=== PATIENT | male | born 1945 | race Caucasian/White ===

== ENCOUNTER → 2018-08-12 | Outpatient (CLI) | payer MEDICARE ==
[2018-08-12 20:47] LABS: African American GFR (CKD) 98.5 (60.0-200.0); Albumin 4.5 g/dL (3.80-4.90); Albumin/Globulin Ratio 1.45 (1.60-3.17); Anion Gap 13.6 mmol/L (4.00-12.00); BUN/Creat Ratio 14.44 Ratio (12.00-20.00); Calcium 9.6 mg/dL (8.7-10.3); Carbon Dioxide 23.4 mmol/L (21.6-31.8); Globulin 3.1 g/dL (1.6-3.3); Potassium 4.1 mmol/L (3.5-5.5); Total Bilirubin 0.6 mg/dL (0.3-1.2); Total Protein 7.6 g/dL (6.2-8.2)
== END | disposition home or self-care (01) ==
LOC: LABWHC1 12:57
PROVIDERS: ATTEND Internal Medicine Interventional Cardiology
DX: I49.9 Cardiac arrhythmia, unspecified (principal)
CPT/HCPCS: 36415; 80053; 83735; 84443

== ENCOUNTER 2019-11-11 16:14 | Observation (INO) | payer MEDICARE ==
[2019-11-11 16:55] LABS: Basophils # (A) 0.1 k/uL (0-0.2); Basophils % (A) 1 %; Eosinophils # (A) 0.2 k/uL (0-0.7); Eosinophils % (A) 2 %; HCT 38.4 % (39.0-53.0); HGB 12.9 gm/dL (13.0-17.5); Lymphocytes # (A) 1.5 k/uL (1.0-4.8); Lymphocytes % (A) 16 %; MCH 31.2 pg (25.0-35.0); MCHC 33.5 g/dL (31.0-37.0); MCV 92.9 fL (80.0-100.0); Monocytes # (A) 0.7 k/uL (0-1.0); Monocytes % (A) 7 %; Neutrophils # (A) 7.1 k/uL (1.3-7.7); Neutrophils % (A) 73 %; Platelet Count 277 k/uL (150-450); RBC 4.14 m/uL (4.30-5.90); RDW 12.1 % (11.5-15.5); WBC 9.7 k/uL (3.8-10.6)
[2019-11-11 17:07] LABS: ALT 16 U/L (4-49); AST 34 U/L (17-59); African American GFR (CKD) >90 (>60 ml/min/1.73 sqM); Albumin 3.9 g/dL (3.5-5.0); Alkaline Phosphatase 94 U/L (38-126); Anion Gap 4 mmol/L; Blood Urea Nitrogen 20 mg/dL (9-20); Calcium 9.2 mg/dL (8.4-10.2); Carbon Dioxide 27 mmol/L (22-30); Chloride 107 mmol/L (98-107); Creatine Kinase 147 U/L (55-170); Glucose 95 mg/dL (74-99); INR 1.1 (<1.2); Non-African American GFR(CKD) 88 (>60 ml/min/1.73 sqM); Partial Thromboplastin Time 24.3 sec (22.0-30.0); Potassium 4.2 mmol/L (3.5-5.1); Prothrombin Time 10.9 sec (9.0-12.0); Sodium 138 mmol/L (137-145); Total Bilirubin 1.2 mg/dL (0.2-1.3); Total Protein 7.1 g/dL (6.3-8.2)
[2019-11-11 17:47] LABS: Appearance,Urine Clear (Clear); Bilirubin,Urine Negative (Negative); Blood,Urine Negative (Negative); Color,Urine Yellow; Glucose,Urine (UA) Negative (Negative); Ketones,Urine 1+ (Negative); Leukocyte Esterase,Urine Negative (Negative); Nitrite,Urine Negative (Negative); PH, Urine 7.5 (5.0-8.0); Protein,Urine Trace (Negative); Specific Gravity,Urine 1.024 (1.001-1.035)
--- NOTE | 2019-11-11 17:57 | ED ---
Altered Mental Status HPI - General Chief Complaint: Altered Mental Status Stated Complaint: Altered Mental Time Seen by Provider: 11/11/19 16:20 Source: EMS Mode of arrival: EMS Limitations: altered mental status - History of Present Illness Initial Comments: Patient is a 74-year-old male with past history of Parkinson's who presents emergency room with reported weakness and altered mental status. The is at bedside and helps provide history. She states that on the the patient was started on Risperdal by his psychiatrist Dr. Saleem. states that this medication was post to help him with his balance and Parkinson's symptoms. She states that ever since he started medication he has been more aggressive. He has been refusing to take his medications over the past several weeks. He also hasn't been eating. reports increased weakness. He used to walk with a walker however this has become very difficult for him. He has sustained 3 falls in the past 2 weeks. The first fall he fell backwards and hit his head. Yesterday the patient fell and EMS had to come to the house to assist with the left. They deny any fevers or chills. No nausea or vomiting. Patient denies any chest or abdominal pain. Does report feeling confused at times. Patient has chronic lower extremity weakness. states this is not any worse than normal. No rashes. No chest pain or shortness of breath. Remainder of the HPI is limited because the patient's mentation - Related Data Home Medications Medication Instructions Recorded Confirmed Carbidopa-Levodopa 25-100 mg 1 tab PO QID 11/11/19 11/11/19 [Sinemet 25-100 mg] Hydrochlorothiazide 12.5 mg PO DAILY 11/11/19 11/11/19 [hydroCHLOROthiazide] Ibuprofen [Motrin Ib] 400 - 600 mg PO Q6H PRN 11/11/19 11/11/19 QUEtiapine [SEROquel] 25 mg PO HS 11/11/19 11/11/19 Tamsulosin [Flomax] 0.8 mg PO HS 11/11/19 11/11/19 diazePAM [Valium] 5 - 10 mg PO ONCE PRN 11/11/19 11/11/19 Allergies Allergy/AdvReac Type Severity Reaction Status Date / Time Penicillins Allergy Unknown Verified 11/11/19 19:36 Childhood Review of Systems ROS Statement: Those systems with pertinent positive or pertinent negative responses have been documented in the HPI. ROS Other: All systems not noted in ROS Statement are negative. Past Medical History Past Medical History: Unable to Obtain History of Any Multi-Drug Resistant Organisms: None Reported Past Surgical History: Unable to Obtain Past Psychological History: No Psychological Hx Reported Smoking Status: Never smoker Past Alcohol Use History: Daily Past Drug Use History: None Reported General Exam Limitations: altered mental status General appearance: alert, in no apparent distress Head exam: Present: atraumatic Neck exam: Present: normal inspection. Absent: tenderness, meningismus, lymphadenopathy Respiratory exam: Present: normal lung sounds bilaterally. Absent: respiratory distress, wheezes, rales, rhonchi, stridor Cardiovascular Exam: Present: regular rate, normal rhythm, normal heart sounds. Absent: systolic murmur, diastolic murmur, rubs, gallop, clicks GI/Abdominal exam: Present: soft, normal bowel sounds. Absent: distended, tenderness, guarding, rebound, rigid Extremities exam: Present: pedal edema, other (resting tremor, ridigity) Neurological exam: Present: alert Psychiatric exam: Present: flat affect Skin exam: Present: warm, dry, intact, normal color. Absent: rash Course Vital Signs 11/11/19 11/11/19 16:17 18:57 Temperature 99.8 F H Pulse Rate 71 89 Respiratory 16 18 Rate Blood Pressure 156/84 134/80 O2 Sat by Pulse 98 99 Oximetry Medical Decision Making - Medical Decision Making Upon arrival the patient is placed into room 24. A thorough history and physical exam was performed. Because the patient's fall with blunt head trauma I did recommend a CT of the patient's brain. Laboratory studies were conducted. Laboratory studies are within normal range. Urinalysis is negative. CT of the patient's head and cervical spine demonstrates age-related atrophy with no acute intracranial process. Chest x-ray demonstrates no acute cardio pulmonary process. I discussed results with the patient and his . The patient has had a decreased appetite, refusing to take his medications of multiple falls I am concerned for the patient's safety. I will hold his Risperdal. I did recommend hospital admission for which the patient did agree to. I discussed case with Dr. Jiménez who agreed to admit the patient. Patient's remained in stable condition and was admitted to the floor - Lab Data Result diagrams: 11/12/19 05:40 11/12/19 05:40 Lab Results 11/11/19 11/11/19 11/11/19 Range/Units 16:45 16:45 16:45 WBC 9.7 (3.8-10.6) k/uL RBC 4.14 L (4.30-5.90) m/uL Hgb 12.9 L (13.0-17.5) gm/dL Hct 38.4 L (39.0-53.0) % MCV 92.9 (80.0-100.0) fL MCH 31.2 (25.0-35.0) pg MCHC 33.5 (31.0-37.0) g/dL RDW 12.1 (11.5-15.5) % Plt Count 277 (150-450) k/uL Neutrophils % 73 % Lymphocytes % 16 % Monocytes % 7 % Eosinophils % 2 % Basophils % 1 % Neutrophils # 7.1 (1.3-7.7) k/uL Lymphocytes # 1.5 (1.0-4.8) k/uL Monocytes # 0.7 (0-1.0) k/uL Eosinophils # 0.2 (0-0.7) k/uL Basophils # 0.1 (0-0.2) k/uL PT 10.9 (9.0-12.0) sec INR 1.1 (<1.2) APTT 24.3 (22.0-30.0) sec Sodium (137-145) mmol/L Potassium (3.5-5.1) mmol/L Chloride (98-107) mmol/L Carbon Dioxide (22-30) mmol/L Anion Gap mmol/L BUN (9-20) mg/dL Creatinine (0.66-1.25) mg/dL Est GFR (CKD-EPI)AfAm (>60 ml/min/1.73 sqM) Est GFR (CKD-EPI)NonAf (>60 ml/min/1.73 sqM) Glucose (74-99) mg/dL Calcium (8.4-10.2) mg/dL Total Bilirubin (0.2-1.3) mg/dL AST (17-59) U/L ALT (4-49) U/L Alkaline Phosphatase (38-126) U/L Creatine Kinase (55-170) U/L Troponin I (0.000-0.034) ng/mL Total Protein (6.3-8.2) g/dL Albumin (3.5-5.0) g/dL Urine Color Yellow Urine Appearance Clear (Clear) Urine pH 7.5 (5.0-8.0) Ur Specific [place] 1.024 (1.001-1.035) Urine Protein Trace H (Negative) Urine Glucose (UA) Negative (Negative) Urine Ketones 1+ H (Negative) Urine Blood Negative (Negative) Urine Nitrite Negative (Negative) Urine Bilirubin Negative (Negative) Urine Urobilinogen 6.0 (<2.0) mg/dL Ur Leukocyte Esterase Negative (Negative) 11/11/19 11/11/19 Range/Units 16:45 16:45 WBC (3.8-10.6) k/uL RBC (4.30-5.90) m/uL Hgb (13.0-17.5) gm/dL Hct (39.0-53.0) % MCV (80.0-100.0) fL MCH (25.0-35.0) pg MCHC (31.0-37.0) g/dL RDW (11.5-15.5) % Plt Count (150-450) k/uL Neutrophils % % Lymphocytes % % Monocytes % % Eosinophils % % Basophils % % Neutrophils # (1.3-7.7) k/uL Lymphocytes # (1.0-4.8) k/uL Monocytes # (0-1.0) k/uL Eosinophils # (0-0.7) k/uL Basophils # (0-0.2) k/uL PT (9.0-12.0) sec INR (<1.2) APTT (22.0-30.0) sec Sodium 138 (137-145) mmol/L Potassium 4.2 (3.5-5.1) mmol/L Chloride 107 (98-107) mmol/L Carbon Dioxide 27 (22-30) mmol/L Anion Gap 4 mmol/L BUN 20 (9-20) mg/dL Creatinine 0.81 (0.66-1.25) mg/dL Est GFR (CKD-EPI)AfAm >90 (>60 ml/min/1.73 sqM) Est GFR (CKD-EPI)NonAf 88 (>60 ml/min/1.73 sqM) Glucose 95 (74-99) mg/dL Calcium 9.2 (8.4-10.2) mg/dL Total Bilirubin 1.2 (0.2-1.3) mg/dL AST 34 (17-59) U/L ALT 16 (4-49) U/L Alkaline Phosphatase 94 (38-126) U/L Creatine Kinase 147 (55-170) U/L Troponin I 0.012 (0.000-0.034) ng/mL Total Protein 7.1 (6.3-8.2) g/dL Albumin 3.9 (3.5-5.0) g/dL Urine Color Urine Appearance (Clear) Urine pH (5.0-8.0) Ur Specific [place] (1.001-1.035) Urine Protein (Negative) Urine Glucose (UA) (Negative) Urine Ketones (Negative) Urine Blood (Negative) Urine Nitrite (Negative) Urine Bilirubin (Negative) Urine Urobilinogen (<2.0) mg/dL Ur Leukocyte Esterase (Negative) - EKG Data EKG Comments: EKG demonstrates a normal sinus rhythm with a ventricular rate of 68. DC interval and 26. QRS 106. QTC of 433. Significant baseline artifact. No acute ST segment elevations or depressions Disposition Clinical Impression: Acute encephalopathy, Fall, Medication adverse effect, Parkinson disease Disposition: ADMITTED IP TO THIS HOSP Condition: Stable Is patient prescribed a controlled substance at d/c from ED?: No Decision to Admit Reason: Admit from EC Decision Date: 11/11/19 Decision Time: 18:41
--- NOTE | 2019-11-11 18:07 | CT ---
EXAMINATION TYPE: CT brain moustapha mendoza con DATE OF EXAM: 11/11/2019 COMPARISON: None HISTORY: Fall injury CT DLP: 1561.8 mGycm, Automated exposure control for dose reduction was used. CONTRAST: Patient injected with mL of . CT of the brain is performed utilizing 3 mm thick sections through the posterior fossa and 3 mm thick sections through the remaining calvarium. Study is performed within 24 hours of arrival to the hospital. No abnormal hyperdensity is present to suggest an acute intracranial hemorrhage. No mass lesion is evident. No acute infarcts are evident. There may be an old lacunar infarct or Virchow-Daryl space adjacent t o the left of the third ventricle. Ventricles and sulci are mildly prominent for the patient age. There is prominence of the extra-axia l space especially noted against the right frontal lobe. Paranasal sinuses and mastoid air cells within the [id number]-tatt are clear. IMPRESSIONS: 1. Age-related atrophy. 2. No acute intracranial process. CT cervical spine. COMPARISON: None CT of the cervical spine is performed in the axial plane at 2 mm thick sections. Reconstructed image s in the coronal, and sagittal plane are reviewed on the computer. No acute fractures are evident. Positioning on the lateral reconstructed images makes evaluation difficult. Disc heights are preserved. Vertebral body heights are preserved. No spinal canal stenosis is evident. No neural foraminal stenosis is evident. IMPRESSIONS: 1. No acute osseous abnormality. 2. Some limitation due to positioning on the lateral projection.
--- NOTE | 2019-11-11 18:19 | XR ---
EXAMINATION TYPE: XR chest 2V DATE OF EXAM: 11/11/2019 COMPARISON: None INDICATION: Cough, pain TECHNIQUE: Frontal and lateral views of the chest are obtained. FINDINGS: The heart size is normal. The pulmonary vasculature is normal. No suspicious focal infiltrates are evident. IMPRESSION: 1. No acute pulmonary process.
[2019-11-11] MEDS ORDERED: NALOXONE 0.4 MG/ML 1 ML VIAL IV PRN (18:41)
[2019-11-11] MEDS: SODIUM CHLORIDE 0.9% 1,000 ML IV SCH (18:55)
[2019-11-12] MEDS: QUEtiapine 25 MG TAB PO SCH ×2 (01:28→21:08)
[2019-11-12 06:27] LABS: Basophils % (A) 0 %; Eosinophils # (A) 0.2 k/uL (0-0.7); Eosinophils % (A) 2 %; HCT 37.2 % (39.0-53.0); Lymphocytes # (A) 1.7 k/uL (1.0-4.8); Lymphocytes % (A) 18 %; MCH 32.5 pg (25.0-35.0); MCV 92.9 fL (80.0-100.0); Mean Platelet Volume 6.4; Monocytes # (A) 0.5 k/uL (0-1.0); Monocytes % (A) 5 %; Neutrophils # (A) 6.7 k/uL (1.3-7.7); Neutrophils % (A) 72 %; Platelet Count 268 k/uL (150-450); RDW 12.4 % (11.5-15.5); WBC 9.3 k/uL (3.8-10.6)
[2019-11-12] MEDS: hydroCHLOROthiazide 12.5 MG CAP PO SCH (09:03)
[2019-11-12] MEDS: CARBIDOPA-LEVODOPA 25-100 MG 1 EACH TAB PO SCH ×4 (09:03→21:08)
[2019-11-12 09:05] LABS: Anion Gap 7.2 mmol/L (4.00-12.00); BUN/Creat Ratio 21.25 Ratio (12.00-20.00); Calcium 8.8 mg/dL (8.7-10.3); Carbon Dioxide 26.8 mmol/L (21.6-31.8)
[2019-11-12] MEDS: SODIUM CHLORIDE 0.9% 1,000 ML IV SCH ×2 (12:01→21:08)
--- NOTE | 2019-11-12 14:37 | P.CN ---
Psychiatric Consult - . Consult date: 11/12/19 Consult:: IDENTIFYING DATA: This patient is a 74-year-old male with a significant history of Parkinson's disease admitted to the hospital for altered mental status and weakness. HISTORY OF PRESENT ILLNESS: The patient presented to the hospital on 11/11/2019 with altered mental status accompanied by his . Most of the patient history was provided by the patient's at bedside with permission granted by the patient. She reports that the patient has had increasing confusion and worsening of Parkinson's symptoms over the past week. She states that he was recently seen by Dr. Saleem, the outpatient psychiatrist after his outpatient neurologist informed him that there was not much else he can do to manage his psychotic symptoms. Risperdal was added and the patient experienced worsening of his symptoms. Currently, the patient is not endorsing any significant symptoms of depression or anxiety at this time. At this time patient denies any suicidal or homicidal ideations, intent or plan. Patient denies any auditory, visual hallucinations and denies any paranoia or delusions. There is no reported history of substance use. He is to drink frequently but has decreased his use to one beer per day at most. PAST PSYCHIATRIC HISTORY: Patient has a a history of anxiety. 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 Patient denies any previous psychiatric hospitalizations. Patient has recently seen by Dr. Saleem. Patient denies any history of suicide attempts in the past. PAST MEDICAL HISTORY: Parkinson's disease. ALLERGIES: as per EMR. CHEMICAL DEPENDENCY HISTORY: as per HPI. FAMILY PSYCHIATRIC/SUBSTANCE USE HISTORY: denies SOCIAL HISTORY: Patient was born and raised in [place]. 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 As of education is graduating high school. MENTAL STATUS EXAM: General Appearance: Patient appears to be stated age is alert, pleasant, and cooperative. Patient appears to have fair hygiene and grooming wearing hospital gown with fair eye contact. Mask facies. Behavior: Patient is calmly lying in bed without any agitated behavior. Pill- rolling tremor noted. Bradykinetic movements. Speech: Patient's speech is minimal and nonspontaneous. Mood/Affect: Patient reports their mood is "doing okay", affect is flat Suicidality/Homicidality: Patient denies having any suicidal or homicidal ideation intent or plan. Perceptions: Patient denies any visual hallucinations and denies any auditory hallucinations Though content/process: There is no evidence of any delusional thought content and thought process is linear and goal-directed. Memory and concentration: Patient is alert and oriented to person and place but not to time. Judgment and insight: poor IMPRESSIONS: Parkinson's related psychosis. PLAN: -At this time patient DOES NOT meet criteria for inpatient psychiatric admission. -Delirium precautions recommended with patient including - avoiding use of narcotics and UROLOGIST MD sedatives, limit anticholinergic medications when possible, frequent re-orientation, minimize use of restraints, open window shades during the day and close them at night -Would recommend the following medication changes/additions: Continue Quetiapine 25 mg by mouth at bedtime for psychosis Recommend holding Risperdal as the dopamine montez would contribute to worsening parkinsonian symptoms. Discussed with patient and Klaus as an option that they may pursue in the outpatient setting to address parkinson's related psychosis as his medication targets serotonergic receptors and not dopamine. Currently not on our formulary. -Psychiatry will sign off at this point, please contact with any questions. 11/12/19 14:33
[2019-11-12 14:40] VITALS: BMI 32.5
--- NOTE | 2019-11-12 14:40 | P.CNNES ---
History of Present Illness Consult date: 11/12/19 Requesting physician: Nimisha Gomez Reason for Consult: Acute encephalopathy, history of Parkinson's History of Present Illness: Patient is a 74-year-old male, with history of Parkinson's disease for the last 5 years, follows up with Dr. Ortez, currently on Sinemet, 25/100, 4 times a day, who came to the hospital yesterday by ambulance at 4:20 PM for weakness, altered mental status and frequent falls. Patient's had mentioned that on 10/30/2019 patient was started on Risperdal by psychiatrist. Patient has been more aggressive refusing to take his medications for the past several weeks. He is also getting more week, difficulty getting out of bed and also to put him back in the bed. He has not been eating. Since starting new medication, patient has been hallucinating, fell 3 times. Prior to this, he has never had any falls. Patient's also tells me that his neurologist has decreased the dose of Sinemet from 4 times a day down to 1 tablet in the morning, half at noon, half at supper and a quarter tablet at bedtime. Prior to Parkinson's disease diagnosis, he was not on any medication. Patient underwent Computed tomography scan of head showed age-related atrophy, no acute intracranial process. CT of the cervical spine showed no acute osseous abnormality. Some limitation due to positioning on the lateral projection. Chest x-ray showed no acute process. EKG shows normal sinus rhythm. Blood test shows normal WBC hemoglobin 12.9, platelets 277, PT/PTT normal, Chem-20 normal. CK, troponin negative, UA negative. Patient's last lipid panel from 08/24/2019 showed cholesterol 136, LDL 70, HDL 55, triglycerides 53. TSH normal 1.69 on 08/24/2019 No history of diabetes. He has low blood pressure. He smoked 1-1/2-2 pack per day from age [age], until he quit 33 years ago in 1986. He also used to drink 6 beers or more daily for almost 50 years. Cutback to drinking 1 beer per day since he was diagnosed with Parkinson's disease. Review of Systems Patient appears somewhat tremulous. Denies headache problem with the vision. Denies hoarseness or sore throat. Denies any numbness tingling focal weakness. Denies chest pain shortness of breath wheezing or cough. Past Medical History Past Medical History: Unable to Obtain Additional Past Medical History / Comment(s): parkinsons History of Any Multi-Drug Resistant Organisms: None Reported Past Surgical History: Unable to Obtain Past Anesthesia/Blood Transfusion Reactions: Unable to Obtain Past Psychological History: No Psychological Hx Reported Smoking Status: Never smoker Past Alcohol Use History: Daily Past Drug Use History: None Reported Medications and Allergies Home Medications Medication Instructions Recorded Confirmed Type Carbidopa-Levodopa 25-100 mg 1 tab PO QID 11/11/19 11/11/19 History [Sinemet 25-100] Hydrochlorothiazide 12.5 mg PO DAILY 11/11/19 11/11/19 History [hydroCHLOROthiazide] Ibuprofen [Motrin Ib] 400 - 600 mg PO Q6H PRN 11/11/19 11/11/19 History QUEtiapine [SEROquel] 25 mg PO HS 11/11/19 11/11/19 History Tamsulosin [Flomax] 0.8 mg PO HS 11/11/19 11/11/19 History diazePAM [Valium] 5 - 10 mg PO ONCE PRN 11/11/19 11/11/19 History risperiDONE [RisperDAL] 0.25 mg PO TID 11/11/19 11/11/19 History Allergies Allergy/AdvReac Type Severity Reaction Status Date / Time Penicillins Allergy Unknown Verified 11/11/19 19:36 Childhood Physical Examination - Vital Signs Vital Signs: Vital Signs Temp Pulse Pulse Resp BP BP Pulse Ox 11/12/19 07:00 98.6 F 65 18 147/77 92 L 11/12/19 04:48 17 11/12/19 02:34 98.6 F 69 17 111/69 95 11/12/19 01:00 17 11/11/19 21:40 18 11/11/19 21:19 98.7 F 72 18 124/66 96 11/11/19 18:57 89 18 134/80 99 11/11/19 16:17 99.8 F H 71 16 156/84 98 Intake and Output 11/11/19 11/12/19 11/12/19 22:59 06:59 14:59 Output Total 475 750 Balance -475 -750 Output: Urine 475 750 Other: Voiding Method Urinal Urinal Weight 108.862 kg On examination patient is an elderly male, who is laying comfortably in the bed. Patient is alert and awake, very flat affect. Decreased facial expression. Speech is somewhat tremulous. He is obvious tremulousness of his arms and legs. Patient has very slow mentation, prolonged latency time to answer any questions. Patient not able to tell what month or year is it about hospital he is in. Pupils are round and reactive to light, visual pruett are full, extraocular muscles are intact. Face is symmetric, tongue protrudes the midline. Palatal elevation and sensation normal hearing is moderately decreased, shoulder shrug normal. On muscle strength testing there is no pronator drift and the strength appears normal in the arms and legs. Reflexes are 2+ and plantars downgoing. Sensory touch is equal. Patient has significant myoclonic low amplitude twitching of his hands, legs as well as the chin. Tone is increased moderately bilaterally. Bulk of muscles is normal. Gait deferred. No obvious bruit, S1 and S2 audible. Peripheral pulses present. Abdomen soft nontender, Results - Laboratory Findings CBC and BMP: 11/12/19 05:40 11/12/19 05:40 Abnormal Lab Findings: Abnormal Labs 11/11/19 11/11/19 11/12/19 16:45 16:45 05:40 RBC 4.14 L 4.00 L Hgb 12.9 L Hct 38.4 L 37.2 L BUN/Creatinine Ratio Urine Protein Trace H Urine Ketones 1+ H 11/12/19 05:40 RBC Hgb Hct BUN/Creatinine Ratio 21.25 H Urine Protein Urine Ketones Assessment and Plan Assessment: * 74-year-old male with history of Parkinson's disease, symptoms got worse 3 days ago since patient was placed on Risperdal for hallucinations. Patient has fell 3 times, with increased stiffness, rigidity and worsening of underlying Parkinson's. This is likely due to extrapyramidal side effects of Risperdal. * Encephalopathy, likely metabolic. * X tobacco use Plan: * Stop Risperdal. * Continue Sinemet one tablet 4 times a day. * Psychiatry on board, addressing doses of psychiatric medication. * Patient's temperature and CK is normal, with no evidence of NMS. * We will check B12, folate * PT and OT.
[2019-11-12 18:04] LABS: Folate, Serum 11.8 ng/mL
[2019-11-12] MEDS: TAMSULOSIN 0.4 MG CAP.ER.24H PO SCH ×2 (21:07→21:14)
--- NOTE | 2019-11-12 23:06 | P.HPIM ---
History of Present Illness H&P Date: 11/12/19 Chief Complaint: Altered mental status Patient is a 74-year-old male with a known history of Parkinson's disease currently on Sinemet presents to ER with generalized weakness and altered mental status. Patient is unable to provide any history and most of the history was taken from his at the bedside. Recently patient became more angry and combative and was started on Risperdal by his physician. He has been wandering all over. They were asked today patient was slid down from the bed to the floor. EMS was called who put them back on the bed. Again happened yesterday and patient became more confused as well. Patient's called EMS and was brought to the hospital. Patient sustained 3 falls in the past 2 weeks. Does not have any fever or chills. No episodes of vomiting or nausea. Denies any chest pain or abdominal pain. No diarrhea no nausea vomiting. Patient was confused and having generalized weakness. Patient is bedridden at baseline due to chronic lower extremity weakness. CT CT head and cervical spine showed age-related atrophy. No acute intracranial process. No acute osseous abnormality. Some limitation due to positioning on the lateral projection. Chest x-ray showed no acute pulmonary process. EKG showed normal sinus rhythm with sinus arrhythmia. Laboratory data showed WBC 9.7, hemoglobin 12.9, platelets 277 Sodium 138, potassium 4.2, chloride 107, bicarb is 27 BUN 20 and creatinine 0.8 Liver enzymes are not elevated. Urinalysis negative Review of Systems complete ROS could not be obtained except as per HPI Past Medical History Past Medical History: Unable to Obtain Additional Past Medical History / Comment(s): parkinsons History of Any Multi-Drug Resistant Organisms: None Reported Past Surgical History: Unable to Obtain Past Anesthesia/Blood Transfusion Reactions: Unable to Obtain Past Psychological History: No Psychological Hx Reported Smoking Status: Never smoker Past Alcohol Use History: Daily Past Drug Use History: None Reported Medications and Allergies Home Medications Medication Instructions Recorded Confirmed Type Carbidopa-Levodopa 25-100 mg 1 tab PO QID 11/11/19 11/11/19 History [Sinemet 25-100] Hydrochlorothiazide 12.5 mg PO DAILY 11/11/19 11/11/19 History [hydroCHLOROthiazide] Ibuprofen [Motrin Ib] 400 - 600 mg PO Q6H PRN 11/11/19 11/11/19 History QUEtiapine [SEROquel] 25 mg PO HS 11/11/19 11/11/19 History Tamsulosin [Flomax] 0.8 mg PO HS 11/11/19 11/11/19 History diazePAM [Valium] 5 - 10 mg PO ONCE PRN 11/11/19 11/11/19 History risperiDONE [RisperDAL] 0.25 mg PO TID 11/11/19 11/11/19 History Allergies Allergy/AdvReac Type Severity Reaction Status Date / Time Penicillins Allergy Unknown Verified 11/11/19 19:36 Childhood Physical Exam Vitals: Vital Signs Temp Pulse Pulse Resp BP BP Pulse Ox 11/12/19 07:00 98.6 F 65 18 147/77 92 L 11/12/19 04:48 17 11/12/19 02:34 98.6 F 69 17 111/69 95 11/12/19 01:00 17 11/11/19 21:40 18 11/11/19 21:19 98.7 F 72 18 124/66 96 11/11/19 18:57 89 18 134/80 99 11/11/19 16:17 99.8 F H 71 16 156/84 98 Intake and Output 11/11/19 11/12/19 11/12/19 22:59 06:59 14:59 Output Total 475 750 Balance -475 -750 Output: Urine 475 750 Other: Voiding Method Urinal Urinal Weight 108.862 kg PHYSICAL EXAMINATION: Patient is lying in the bed comfortably, no acute distress, awake alert and orientedx1.. HEENT: Normocephalic. Neck is supple. Pupils reactive. Nostrils clear. Oral cavity is moist. Ears reveal no drainage. Neck reveals no JVD, carotid bruits, or thyromegaly. CHEST EXAMINATION: Trachea is central. Symmetrical expansion. Lung pruett clear to auscultation and percussion. CARDIAC: Normal S1, S2 with no gallops. No murmurs ABDOMEN: Soft. Mild lower abdominal tenderness. No guarding no rigidity. Bowel sounds normal. No organomegaly. No abdominal bruits. Extremities: reveal no edema. No clubbing or cyanosis Neurologically awake, alert, oriented x1 .Patient does have bilateral lower extremity weakness. Skin: No rash or skin lesions. Psychiatric: Coperative. Musculoskeletal: No joint swelling or deformity. Results CBC & Chem 7: 11/12/19 05:40 11/12/19 05:40 Labs: Abnormal Lab Results - Last 24 Hours (Table) 11/11/19 11/11/19 11/12/19 Range/Units 16:45 16:45 05:40 RBC 4.14 L 4.00 L (4.30-5.90) m/uL Hgb 12.9 L (13.0-17.5) gm/dL Hct 38.4 L 37.2 L (39.0-53.0) % BUN/Creatinine Ratio (12.00-20.00) Ratio Urine Protein Trace H (Negative) Urine Ketones 1+ H (Negative) 11/12/19 Range/Units 05:40 RBC (4.30-5.90) m/uL Hgb (13.0-17.5) gm/dL Hct (39.0-53.0) % BUN/Creatinine Ratio 21.25 H (12.00-20.00) Ratio Urine Protein (Negative) Urine Ketones (Negative) Thrombosis Risk Factor Assmnt - DVT/VTE Prophylaxis DVT/VTE Prophylaxis: Pharmacologic Prophylaxis ordered - Choose All That Apply Each Factor Represents 1 point: Obesity (BMI >25), Swollen legs (current) Each Risk Factor Represents 2 Points: Age 61-74 years Thrombosis Risk Factor Assessment Total Risk Factor Score: 4 Thrombosis Risk Factor Assessment Level: Moderate Risk Assessment and Plan Assessment: Altered mental status likely due to risperidone started 3 days ago. S/p multiple falls with increased stiffness and rigidity likely extraparametal side effects of Risperdal. Parkinson's disease History of smoking DVT prophylaxis Plan: Patient is being continued on IV hydration and Risperdal is on hold. Neurology and psychiatry was consulted. Continue with the Seroquel at this time. Unlikely neuroleptic malignant syndrome since his CPK is not elevated and patient has been afebrile. PT OT was consulted and possible transfer to rehab. Discussed with his at bedside in detail. Prognosis guarded. Time with Patient: Greater than 30
[2019-11-13] MEDS: hydroCHLOROthiazide 12.5 MG CAP PO SCH ×2 (08:43→08:46)
[2019-11-13] MEDS: CARBIDOPA-LEVODOPA 25-100 MG 1 EACH TAB PO SCH ×5 (08:43→21:27)
[2019-11-13] MEDS: SODIUM CHLORIDE 0.9% 1,000 ML IV SCH ×2 (11:08→23:52)
--- NOTE | 2019-11-13 19:59 | P.PN ---
Subjective Progress Note Date: 11/13/19 Patient was seen for a follow-up. Patient is laying comfortably in the bed. Offers no new complaints. patient continues to be very tremulous. Objective - Vital Signs Vital signs: Vital Signs Temp 98.9 F 11/13/19 14:47 Pulse 75 11/13/19 14:47 Resp 18 11/13/19 14:47 BP 155/93 11/13/19 14:47 Pulse Ox 95 11/13/19 14:47 Intake & Output 11/13/19 11/13/19 11/14/19 06:59 18:59 06:59 Output Total 1950 1000 Balance -1950 -1000 Output: Urine 1949 1000 Other: Voiding Method Urinal - Exam patient is alert and awake. Patient's tone is increased bilaterally, with very significant tremulousness, metabolic tremors. Yakov examination unchanged. - Labs CBC & Chem 7: 11/12/19 05:40 11/12/19 05:40 Assessment and Plan Assessment: * 74-year-old male with history of Parkinson's disease, symptoms got worse 3 days ago since patient was placed on Risperdal for hallucinations. Patient has fell 3 times, with increased stiffness, rigidity and worsening of underlying Parkinson's. This is likely due to extrapyramidal side effects of Risperdal. * Delirium, metabolic tremors. * Encephalopathy, likely metabolic. * Hallucinations, likely due to above. * X tobacco use Plan: * Stop Risperdal. * Continue Sinemet one tablet 4 times a day. * Psychiatry on board, addressing doses of psychiatric medication. * Patient's temperature and CK is normal, with no evidence of NMS. * B12 319, folate 11.8 * PT and OT. * follow-up with patient's neurologist as outpatient.
[2019-11-13] MEDS: QUEtiapine 25 MG TAB PO SCH (21:27)
[2019-11-13] MEDS: TAMSULOSIN 0.4 MG CAP.ER.24H PO SCH (21:27)
--- NOTE | 2019-11-13 22:47 | P.PN ---
Subjective Progress Note Date: 11/13/19 Principal diagnosis: Altered mental status likely due to risperidone started 3 days ago. Patient is a 74-year-old male with a known history of Parkinson's disease currently on Sinemet presents to ER with generalized weakness and altered mental status. Patient is unable to provide any history and most of the history was taken from his at the bedside. Recently patient became more angry and combative and was started on Risperdal by his physician. He has been wandering all over. They were asked today patient was slid down from the bed to the floor. EMS was called who put them back on the bed. Again happened yesterday and patient became more confused as well. Patient's called EMS and was brought to the hospital. Patient sustained 3 falls in the past 2 weeks. Does not have any fever or chills. No episodes of vomiting or nausea. Denies any chest pain or abdominal pain. No diarrhea no nausea vomiting. Patient was confused and having generalized weakne ss. Patient is bedridden at baseline due to chronic lower extremity weakness. CT CT head and cervical spine showed age-related atrophy. No acute intracranial process. No acute osseous abnormality. Some limitation due to positioning on the lateral projection. Chest x-ray showed no acute pulmonary process. EKG showed normal sinus rhythm with sinus arrhythmia. Laboratory data showed WBC 9.7, hemoglobin 12.9, platelets 277 Sodium 138, potassium 4.2, chloride 107, bicarb is 27 BUN 20 and creatinine 0.8 Liver enzymes are not elevated. Urinalysis negative 11/13/2019 Patient is currently lying in the bed comfortably. Was able to tolerate oral diet with one-to-one feeding. Patient is otherwise poor historian. Patient's is at bedside. No fever no chills. Patient has been calm and was able to sleep last night. No chest pain or shortness of breath. Anticipate discharge to rehab in the next 24 hours. Current medications reviewed. Objective - Vital Signs Vital signs: Vital Signs Temp 97.8 F 11/13/19 19:16 Pulse 51 L 11/13/19 19:16 Resp 18 11/13/19 14:47 BP 155/74 11/13/19 19:16 Pulse Ox 96 11/13/19 19:16 Intake & Output 11/13/19 11/13/19 11/14/19 06:59 18:59 06:59 Output Total 1950 1000 Balance -1949 Output: Urine 1949 999 Other: Voiding Method Urinal - Exam PHYSICAL EXAMINATION: Patient is lying in the bed comfortably, no acute distress, awake alert and orientedx1.. HEENT: Normocephalic. Neck is supple. Pupils reactive. Nostrils clear. Oral cavity is moist. Ears reveal no drainage. Neck reveals no JVD, carotid bruits, or thyromegaly. CHEST EXAMINATION: Trachea is central. Symmetrical expansion. Lung pruett clear to auscultation and percussion. CARDIAC: Normal S1, S2 with no gallops. No murmurs ABDOMEN: Soft. Mild lower abdominal tenderness. No guarding no rigidity. Bowel sounds normal. No organomegaly. No abdominal bruits. Extremities: reveal no edema. No clubbing or cyanosis Neurologically awake, alert, oriented x1 .Patient does have bilateral lower extremity weakness. Skin: No rash or skin lesions. Psychiatric: Coperative. Musculoskeletal: No joint swelling or deformity. - Labs CBC & Chem 7: 11/12/19 05:40 11/12/19 05:40 Assessment and Plan Assessment: Altered mental status likely due to risperidone started 3 days ago. S/p multiple falls with increased stiffness and rigidity likely extraparametal side effects of Risperdal. Parkinson's disease History of smoking DVT prophylaxis Plan: Patient is being continued on IV hydration and Risperdal is on hold. Neurology and psychiatry was consulted. Continue with the Seroquel at this time. Unlikely neuroleptic malignant syndrome since his CPK is not elevated and patient has been afebrile. PT OT was consulted and possible transfer to rehab. Discussed with his at bedside in detail. Prognosis guarded. Time with Patient: Greater than 30
[2019-11-14 07:43] VITALS: BP 124/75; PULSE 82; RESP 16; TEMP 98.7
[2019-11-14] MEDS: hydroCHLOROthiazide 12.5 MG CAP PO SCH (08:32)
[2019-11-14] MEDS: CARBIDOPA-LEVODOPA 25-100 MG 1 EACH TAB PO SCH ×2 (08:32→12:50)
[2019-11-14] MEDS: SODIUM CHLORIDE 0.9% 1,000 ML IV SCH (13:09)
--- NOTE | 2019-11-14 13:27 | P.DS ---
Providers Date of admission: 11/11/19 18:41 Expected date of discharge: 11/14/19 Attending physician: Elvin Jiménez Consults: 11/11/19 18:42 Consult Physician Urgent Consulting Provider: Kirill Jackson Consult Reason/Comments: acute encephalopathy, hx parkinsons Do you want consulting provider notified?: Yes Consult Physician Urgent Consulting Provider: Ana Cristina Juarez Consult Reason/Comments: acute encephalopathy, hx parkinsons Do you want consulting provider notified?: Yes Primary care physician: Hamida Diaz Hospital Course: Discharge diagnosis Altered mental status likely due to risperidone started 3 days ago. Improved now back to baseline. S/p multiple falls with increased stiffness and rigidity likely extraparametal side effects of Risperdal. Parkinson's disease History of smoking DVT prophylaxis Hospital course Patient is a 74-year-old male with a known history of Parkinson's disease currently on Sinemet presents to ER with generalized weakness and altered mental status. Patient is unable to provide any history and most of the history was taken from his at the bedside. Recently patient became more angry and combative and was started on Risperdal by his physician. He has been wandering all over. They were asked today patient was slid down from the bed to the floor. EMS was called who put them back on the bed. Again happened yesterday and patient became more confused as well. Patient's called EMS and was brought to the hospital. Patient sustained 3 falls in the past 2 weeks. Does not have any fever or chills. No episodes of vomiting or nausea. Denies any chest pain or abdominal pain. No diarrhea no nausea vomiting. Patient was confused and having generalized weakness. Patient is bedridden at baseline due to chronic lower extremity weakness. CT CT head and cervical spine showed age-related atrophy. No acute intracranial process. No acute osseous abnormality. Some limitation due to positioning on the lateral projection. Chest x-ray showed no acute pulmonary process. EKG showed normal sinus rhythm with sinus arrhythmia. Laboratory data showed WBC 9.7, hemoglobin 12.9, platelets 277 Sodium 138, potassium 4.2, chloride 107, bicarb is 27 BUN 20 and creatinine 0.8 Liver enzymes are not elevated. Urinalysis negative 11/13/2019 Patient is currently lying in the bed comfortably. Was able to tolerate oral diet with one-to-one feeding. Patient is otherwise poor historian. Patient's is at bedside. No fever no chills. Patient has been calm and was able to sleep last night. No chest pain or shortness of breath. Anticipate discharge to rehab in the next 24 hours. 11/14/2019 Patient is currently lying in the bed comfortably. Awake alert and follows simple commands. Patient has been afebrile. Overnight patient was not agitated. Risperidone will be stopped and continue with Seroquel at night. Patient is afebrile otherwise. No complaints of chest pain or shortness of breath. Tolerating oral diet slowly. Anticipate discharge to rehab. PHYSICAL EXAMINATION: Patient is lying in the bed comfortably, no acute distress, awake alert and orientedx1-2.. HEENT: Normocephalic. Neck is supple. Pupils reactive. Nostrils clear. Oral cavity is moist. Ears reveal no drainage. Neck reveals no JVD, carotid bruits, or thyromegaly. CHEST EXAMINATION: Trachea is central. Symmetrical expansion. Lung pruett clear to auscultation and percussion. CARDIAC: Normal S1, S2 with no gallops. No murmurs ABDOMEN: Soft. Mild lower abdominal tenderness. No guarding no rigidity. Bowel sounds normal. No organomegaly. No abdominal bruits. Extremities: reveal no edema. No clubbing or cyanosis Neurologically awake, alert, oriented x1-2 .Patient does have bilateral lower extremity weakness. Skin: No rash or skin lesions. Psychiatric: Coperative. Musculoskeletal: No joint swelling or deformity. Vital Signs 11/14/19 07:00 Temperature 98.7 F Pulse Rate [ 82 Left Supine Pulse Oximetery ] Respiratory 16 Rate Blood Pressure 124/75 [Right Arm Supine] O2 Sat by Pulse 95 Oximetry Patient Condition at Discharge: Stable Plan - Discharge Summary Discharge Rx Participant: No New Discharge Prescriptions: Continue diazePAM [Valium] 5 - 10 mg PO ONCE PRN PRN Reason: dr javier Tamsulosin [Flomax] 0.8 mg PO HS Ibuprofen [Motrin Ib] 400 - 600 mg PO Q6H PRN PRN Reason: Pain QUEtiapine [SEROquel] 25 mg PO HS Hydrochlorothiazide [hydroCHLOROthiazide] 12.5 mg PO DAILY Carbidopa-Levodopa 25-100 mg [Sinemet 25-100 mg] 1 tab PO QID Discontinued risperiDONE [RisperDAL] 0.25 mg PO TID Discharge Medication List Carbidopa-Levodopa 25-100 mg [Sinemet 25-100 mg] 1 tab PO QID 11/11/19 [History] Hydrochlorothiazide [hydroCHLOROthiazide] 12.5 mg PO DAILY 11/11/19 [History] Ibuprofen [Motrin Ib] 400 - 600 mg PO Q6H PRN 11/11/19 [History] QUEtiapine [SEROquel] 25 mg PO HS 11/11/19 [History] Tamsulosin [Flomax] 0.8 mg PO HS 11/11/19 [History] diazePAM [Valium] 5 - 10 mg PO ONCE PRN 11/11/19 [History] Follow up Appointment(s)/Referral(s): Hamida Diaz DO [Primary Care Provider] - 1-2 days [facility], [NON-STAFF] - As Needed Discharge Disposition: TRANSFER TO SNF/ECF
== END 2019-11-14 14:47 ==
LOC: EC 16:14 → 4SSUR 18:41
PROVIDERS: ADMIT Internal Medicine; ATTEND Internal Medicine
DX: G93.40 Encephalopathy, unspecified (principal); R29.6 Repeated falls; R45.6 Violent behavior; R63.0 Anorexia; R53.1 Weakness; S09.8XXA Other specified injuries of head, initial encounter; G20 Parkinson's disease; F06.0 Psychotic disorder with hallucinations due to known physiological condition; E66.9 Obesity, unspecified; M79.89 Other specified soft tissue disorders; Z79.899 Other long term (current) drug therapy; Z88.0 Allergy status to penicillin; Z87.891 Personal history of nicotine dependence; Z68.32 Body mass index [BMI] 32.0-32.9, adult; Z74.01 Bed confinement status; W06.XXXA Fall from bed, initial encounter
CPT/HCPCS: 96360; 96361 ×3; 99285; 36415; 93005 ×2; 97162; 97166; 80053; 80048; 82607; 82550; 82746; 84484; 85025 ×2; 85610; 85730; 81003; 71046; 72125; 70450; G0378 ×4

== ENCOUNTER 2019-11-27 16:07 | Observation (INO) | payer MEDICAID, MEDICARE ==
[2019-11-27] MEDS ORDERED: SODIUM CHLORIDE 0.9% 500 ML 500 ML IV STA (16:28)
--- NOTE | 2019-11-27 17:08 | ED ---
General Adult HPI - General Chief complaint: Recheck/Abnormal Lab/Rx Stated complaint: Unable to swallow Time Seen by Provider: 11/27/19 16:11 - History of Present Illness Initial comments: Patient is a 74-year-old male, history of Parkinson's, currently at [facility], presenting for multiple reasons including decreased ability to swallow, weight loss over the past week. He is also currently being treated for aspiration pneumonia and on Levaquin. Patient is unable to answer questions, he is currently at baseline according to his . He does respond to painful stimuli or taking his blood pressure over not able to answer questions. He is currently bedridden due to chronic leg weakness. Patient's states that she feels like he needs a feeding tube or be placed on hospice. According to Eric, he has had no fevers, no vomiting, no diarrhea. Patient can become aggressive at times. There have been no recent falls. There are no further complaints at this time. - Related Data Home Medications Medication Instructions Recorded Confirmed Carbidopa-Levodopa 25-100 mg 1 tab PO DAILY@0700 11/11/19 11/27/19 [Sinemet 25-100 mg] Ibuprofen [Motrin Ib] 400 mg PO Q6H PRN 11/11/19 11/27/19 Tamsulosin [Flomax] 0.8 mg PO HS@2100 11/11/19 11/27/19 diazePAM [Valium] 10 mg PO DAILY PRN 11/11/19 11/27/19 Carbidopa-Levodopa 25-100 mg 0.5 tab PO TID@1100,1700,2000 11/27/19 11/27/19 [Sinemet 25-100] Health Shake 1 can PO TID@0700,1200,1700 11/27/19 11/27/19 Allergies Allergy/AdvReac Type Severity Reaction Status Date / Time Penicillins Allergy Unknown Verified 11/27/19 18:49 Childhood Review of Systems ROS Statement: Those systems with pertinent positive or pertinent negative responses have been documented in the HPI. ROS Other: All systems not noted in ROS Statement are negative. Past Medical History Past Medical History: Unable to Obtain Additional Past Medical History / Comment(s): parkinsons History of Any Multi-Drug Resistant Organisms: None Reported Past Surgical History: Unable to Obtain Past Anesthesia/Blood Transfusion Reactions: Unable to Obtain Past Psychological History: No Psychological Hx Reported Smoking Status: Never smoker Past Alcohol Use History: Daily Past Drug Use History: None Reported General Exam - General Exam Comments Initial Comments: GENERAL: Patient not able to respond to questions, does respond to pain. No acute distress. HEAD: Atraumatic, normocephalic. EYES: Pupils equal round and reactive to light, extraocular movements intact, sclera anicteric, conjunctiva are normal. Eyelids were unremarkable. ENT: TMs normal, nares patent, oropharynx clear without exudates. Dry mucous membranes. NECK: Normal range of motion, supple without lymphadenopathy or JVD. LUNGS: Unlabored respirations. Breath sounds clear to auscultation bilaterally and equal. No wheezes rales or rhonchi. HEART: Regular rate and rhythm without murmurs, rubs or gallops. ABDOMEN: Soft, nontender, normoactive bowel sounds. No guarding, no rebound. No masses appreciated. : Deferred MUSCULOSKELETAL: Normal extremities with adequate strength and normal range of motion, no pitting or edema. Neurovascular intact bilaterally. No clubbing or cyanosis. History of Parkinson's, tremors present. NEUROLOGICAL: Patient unable to answer questions, does respond to stimuli such as pain, blood pressure being checked. He is currently at baseline according to his . SKIN: Warm, Dry, normal turgor, no rashes. Patient has healing bruises noted to bilateral hands, dorsal aspect with healing skin tears covered with Steri- Strips. No signs of infection at this time. Course Vital Signs 11/27/19 11/27/19 11/27/19 16:10 17:17 17:30 Temperature 98.0 F Pulse Rate 76 71 Respiratory 20 18 Rate Blood Pressure 103/74 103/74 O2 Sat by Pulse 97 92 L 98 Oximetry 11/27/19 11/27/19 11/27/19 18:00 18:30 19:00 Temperature Pulse Rate 70 61 68 Respiratory 15 15 16 Rate Blood Pressure 105/76 104/51 121/58 O2 Sat by Pulse 100 100 99 Oximetry 11/27/19 19:30 Temperature 98.0 F Pulse Rate 68 Respiratory 20 Rate Blood Pressure 124/58 O2 Sat by Pulse 100 Oximetry EKG Findings - EKG Comments: EKG Findings:: Sinus rhythm with occasional PVCs, nonspecific T-wave abnor malities, no signs acute ischemia, similar to previous EKG on 11/11/2019. Ventricular rate 75, HI interval 148, QTC 394. Medical Decision Making - Medical Decision Making Patient is a 74-year-old male, with history of Parkinson's, presenting from [facility] for recent weight loss, difficulty swallowing for the past week. Patient's states the patient is at baseline at this time however has been having difficulty swallowing for the past week. There is been no recent fevers, patient's vital signs are stable. Lab work does show slight leukocytosis at 16.8, sodium is 159, creatinine is elevated above baseline at 1.65, BUN is 84, lactic acid is 1.2. Urine shows no evidence of infection. Chest x-ray shows bilateral mild atelectasis is improved on the right side and increased on the left side compared to old exam. Patient will be admitted for further evaluation with difficulty swallowing. Patient accepted by Dr. Jiménez. Case discussed with Dr. Mistry. - Lab Data Result diagrams: 11/27/19 17:28 11/27/19 17:28 Lab Results 11/27/19 11/27/19 11/27/19 Range/Units 17:28 17:28 17:28 WBC 16.8 H (3.8-10.6) k/uL RBC 4.77 (4.30-5.90) m/uL Hgb 15.4 (13.0-17.5) gm/dL Hct 47.6 (39.0-53.0) % MCV 99.6 D (80.0-100.0) fL MCH 32.2 (25.0-35.0) pg MCHC 32.3 (31.0-37.0) g/dL RDW 12.2 (11.5-15.5) % Plt Count 345 (150-450) k/uL Neutrophils % 81 % Lymphocytes % 12 % Monocytes % 4 % Eosinophils % 1 % Basophils % 1 % Neutrophils # 13.6 H (1.3-7.7) k/uL Lymphocytes # 2.0 (1.0-4.8) k/uL Monocytes # 0.7 (0-1.0) k/uL Eosinophils # 0.2 (0-0.7) k/uL Basophils # 0.1 (0-0.2) k/uL PT 13.7 H (9.0-12.0) sec INR 1.4 H (<1.2) APTT 26.8 (22.0-30.0) sec Sodium (137-145) mmol/L Potassium (3.5-5.1) mmol/L Chloride (98-107) mmol/L Carbon Dioxide (22-30) mmol/L Anion Gap mmol/L BUN (9-20) mg/dL Creatinine (0.66-1.25) mg/dL Est GFR (CKD-EPI)AfAm (>60 ml/min/1.73 sqM) Est GFR (CKD-EPI)NonAf (>60 ml/min/1.73 sqM) Glucose (74-99) mg/dL Plasma Lactic Acid Tello (0.7-2.0) mmol/L Calcium (8.4-10.2) mg/dL Magnesium (1.6-2.3) mg/dL Total Bilirubin (0.2-1.3) mg/dL AST (17-59) U/L ALT (4-49) U/L Alkaline Phosphatase (38-126) U/L Total Protein (6.3-8.2) g/dL Albumin (3.5-5.0) g/dL Urine Color Yellow Urine Appearance Cloudy (Clear) Urine pH 5.0 (5.0-8.0) Ur Specific Jackson 1.025 (1.001-1.035) Urine Protein Trace H (Negative) Urine Glucose (UA) Negative (Negative) Urine Ketones Negative (Negative) Urine Blood Negative (Negative) Urine Nitrite Negative (Negative) Urine Bilirubin Negative (Negative) Urine Urobilinogen 4.0 (<2.0) mg/dL Ur Leukocyte Esterase Negative (Negative) Urine RBC 1 (0-5) /hpf Urine WBC 4 (0-5) /hpf Amorphous Sediment Few H (None) /hpf Hyaline Casts 11 H (0-2) /lpf Urine Mucus Rare H (None) /hpf 11/27/19 11/27/19 Range/Units 17:28 17:28 WBC (3.8-10.6) k/uL RBC (4.30-5.90) m/uL Hgb (13.0-17.5) gm/dL Hct (39.0-53.0) % MCV (80.0-100.0) fL MCH (25.0-35.0) pg MCHC (31.0-37.0) g/dL RDW (11.5-15.5) % Plt Count (150-450) k/uL Neutrophils % % Lymphocytes % % Monocytes % % Eosinophils % % Basophils % % Neutrophils # (1.3-7.7) k/uL Lymphocytes # (1.0-4.8) k/uL Monocytes # (0-1.0) k/uL Eosinophils # (0-0.7) k/uL Basophils # (0-0.2) k/uL PT (9.0-12.0) sec INR (<1.2) APTT (22.0-30.0) sec Sodium 159 H (137-145) mmol/L Potassium 4.2 (3.5-5.1) mmol/L Chloride 126 H (98-107) mmol/L Carbon Dioxide 23 (22-30) mmol/L Anion Gap 10 mmol/L BUN 84 H (9-20) mg/dL Creatinine 1.65 H (0.66-1.25) mg/dL Est GFR (CKD-EPI)AfAm 47 (>60 ml/min/1.73 sqM) Est GFR (CKD-EPI)NonAf 40 (>60 ml/min/1.73 sqM) Glucose 118 H (74-99) mg/dL Plasma Lactic Acid Tello 1.2 (0.7-2.0) mmol/L Calcium 9.6 (8.4-10.2) mg/dL Magnesium 3.1 H (1.6-2.3) mg/dL Total Bilirubin 1.2 (0.2-1.3) mg/dL AST 53 (17-59) U/L ALT 52 H (4-49) U/L Alkaline Phosphatase 122 (38-126) U/L Total Protein 7.5 (6.3-8.2) g/dL Albumin 3.5 (3.5-5.0) g/dL Urine Color Urine Appearance (Clear) Urine pH (5.0-8.0) Ur Specific Jackson (1.001-1.035) Urine Protein (Negative) Urine Glucose (UA) (Negative) Urine Ketones (Negative) Urine Blood (Negative) Urine Nitrite (Negative) Urine Bilirubin (Negative) Urine Urobilinogen (<2.0) mg/dL Ur Leukocyte Esterase (Negative) Urine RBC (0-5) /hpf Urine WBC (0-5) /hpf Amorphous Sediment (None) /hpf Hyaline Casts (0-2) /lpf Urine Mucus (None) /hpf Disposition Clinical Impression: Parkinson disease, Leukocytosis, Difficulty swallowing, Weight loss Disposition: ADMITTED IP TO THIS [facility] Condition: Fair Decision Date: 11/27/19 Decision Time: 18:35
--- NOTE | 2019-11-27 17:19 | XR ---
EXAMINATION TYPE: XR chest 1V DATE OF EXAM: 11/27/2019 COMPARISON: 11/11/2019 HISTORY: Dysphagia TECHNIQUE: Single view FINDINGS: There is some linear density in the mid lung pruett bilaterally. Heart size is normal. Thor acic aorta is atheromatous. There is no heart failure. Costophrenic angles are clear. IMPRESSION: There is bilateral mild atelectasis that is improved on the right side and increased on t he left side compared to old exam. No heart failure seen. No pulmonary consolidation.
[2019-11-27 17:43] LABS: Basophils # (A) 0.1 k/uL (0-0.2); Basophils % (A) 1 %; Eosinophils # (A) 0.2 k/uL (0-0.7); Eosinophils % (A) 1 %; HCT 47.6 % (39.0-53.0); HGB 15.4 gm/dL (13.0-17.5); Lymphocytes % (A) 12 %; MCH 32.2 pg (25.0-35.0); MCHC 32.3 g/dL (31.0-37.0); Mean Platelet Volume 7.7; Monocytes # (A) 0.7 k/uL (0-1.0); Monocytes % (A) 4 %; Neutrophils # (A) 13.6 k/uL (1.3-7.7); Neutrophils % (A) 81 %; Platelet Count 345 k/uL (150-450); RBC 4.77 m/uL (4.30-5.90); RDW 12.2 % (11.5-15.5); WBC 16.8 k/uL (3.8-10.6)
[2019-11-27 17:47] LABS: MCV 99.6 fL (80.0-100.0)
[2019-11-27 17:53] LABS: INR 1.4 (<1.2); Partial Thromboplastin Time 26.8 sec (22.0-30.0); Prothrombin Time 13.7 sec (9.0-12.0)
[2019-11-27 17:54] LABS: Albumin 3.5 g/dL (3.5-5.0); Calcium 9.6 mg/dL (8.4-10.2); Magnesium 3.1 mg/dL (1.6-2.3); Potassium 4.2 mmol/L (3.5-5.1); Total Bilirubin 1.2 mg/dL (0.2-1.3); Total Protein 7.5 g/dL (6.3-8.2)
[2019-11-27 18:05] LABS: Amorphous Sediment,Urine Few /hpf; Appearance,Urine Cloudy (Clear); Bilirubin,Urine Negative (Negative); Blood,Urine Negative (Negative); Color,Urine Yellow; Glucose,Urine (UA) Negative (Negative); Hyaline Casts,Urine 11 /lpf (0-2); Ketones,Urine Negative (Negative); Leukocyte Esterase,Urine Negative (Negative); Mucus,Urine Rare /hpf; Nitrite,Urine Negative (Negative); Protein,Urine Trace (Negative); RBC,Urine 1 /hpf (0-5); Specific Gravity,Urine 1.025 (1.001-1.035); WBC,Urine 4 /hpf (0-5)
[2019-11-27] MEDS ORDERED: ACETAMINOPHEN TAB 325 MG TAB PO PRN (18:33)
[2019-11-27] MEDS ORDERED: ONDANSETRON 4 MG/2 ML VIAL IVP PRN (18:33)
[2019-11-27] MEDS ORDERED: NALOXONE 0.4 MG/ML 1 ML VIAL IV PRN (18:33)
[2019-11-28 02:06] VITALS: RESP 20
[2019-11-28 08:05] VITALS: BP 134/74; PULSE 81; TEMP 99
[2019-11-28 12:36] VITALS: BMI 25.4
--- NOTE | 2019-11-28 14:44 | P.HPIM ---
History of Present Illness 74-year-old male, history of Parkinson's, currently at [facility], presenting for multiple reasons including decreased ability to swallow, weight loss over the past week. He is also currently being treated for aspiration pneumonia and on Levaquin. Patient is unable to answer questions, he is currently at baseline according to his . He does respond to painful stimuli or taking his blood pressure over not able to answer questions. He is currently bedridden due to chronic leg weakness. Patient's states that she feels like he needs a feeding tube or be placed on hospice. According to Eric, he has had no fevers, no vomiting, no diarrhea. Patient can become aggressive at times. There have been no recent falls. There are no further complaints at this time. Patient appears to be obtunded family at the bedside with I was able to get the history from the family members which his daughter in the Patient has extensive history diagnosed 4 years ago with Parkinson's since then patient function and he has been getting progressively worse patient started getting agitated because of which patient was started on Risperdal after Risperdal his functional status and Parkinson's worsened significantly leading to extreme poor functionality, dysphagia. Patient is presently severely dehydrated cannot eat anything functionality is extremely poor unable to do physical therapy at the rehabilitation. Family is ready for hospice. Because of the extreme poor functionality hospice is appropriate patient's prognosis is extremely poor. Patient is severely dehydrated barely responsive in with painful stimuli. Review of Systems Unable to obtain due to his clinical condition Past Medical History Past Medical History: Unable to Obtain Additional Past Medical History / Comment(s): parkinsons History of Any Multi-Drug Resistant Organisms: None Reported Past Surgical History: Unable to Obtain Past Anesthesia/Blood Transfusion Reactions: Unable to Obtain Past Psychological History: No Psychological Hx Reported Smoking Status: Never smoker Past Alcohol Use History: Daily Past Drug Use History: None Reported Medications and Allergies Home Medications Medication Instructions Recorded Confirmed Type Carbidopa-Levodopa 25-100 mg 1 tab PO DAILY@0700 11/11/19 11/27/19 History [Sinemet 25-100 mg] Ibuprofen [Motrin Ib] 400 mg PO Q6H PRN 11/11/19 11/27/19 History Tamsulosin [Flomax] 0.8 mg PO HS@2100 11/11/19 11/27/19 History diazePAM [Valium] 10 mg PO DAILY PRN 11/11/19 11/27/19 History Carbidopa-Levodopa 25-100 mg 0.5 tab PO TID@1100,1700,2000 11/27/19 11/27/19 History [Sinemet 25-100] Health Shake 1 can PO TID@0700,1200,1700 11/27/19 11/27/19 History Allergies Allergy/AdvReac Type Severity Reaction Status Date / Time Penicillins Allergy Unknown Verified 11/27/19 18:49 Childhood Physical Exam Vitals: Vital Signs Temp Pulse Pulse Resp BP BP Pulse Ox 11/28/19 07:00 99.0 F 81 20 134/74 95 11/28/19 01:05 98.4 F 78 20 105/71 95 11/27/19 20:57 97.6 F 76 18 101/64 96 11/27/19 19:30 98.0 F 68 20 124/58 100 11/27/19 19:00 68 16 121/58 99 11/27/19 18:30 61 15 104/51 100 11/27/19 18:00 70 15 105/76 100 11/27/19 17:30 71 18 103/74 98 11/27/19 17:17 92 L 11/27/19 16:10 98.0 F 76 20 103/74 97 Intake and Output 11/27/19 11/28/19 11/28/19 22:59 06:59 14:59 Intake Total 0 0 Balance 0 0 Intake: Oral 0 0 Other: Voiding Method Diaper Diaper # Voids 2 1 # Bowel Movements 1 Weight 82.554 kg 82.554 kg PHYSICAL EXAMINATION: GENERAL: Thin built up trended barely responsive mucous membranes looks really sick HEENT: No scleral icterus. No conjunctival pallor. Normocephalic, atraumatic. No pharyngeal erythema. No thyromegaly. CARDIOVASCULAR: S1 and S2 present. No murmurs, rubs, or gallops. PULMONARY: Unable to assess ABDOMEN: Soft, nontender, nondistended, normoactive bowel sounds. No palpable organomegaly. MUSCULOSKELETAL: No joint swelling or deformity. EXTREMITIES: No cyanosis, clubbing, or pedal edema. NEUROLOGICAL: Able to assess SKIN: No rashes. Results CBC & Chem 7: 11/27/19 17:28 11/27/19 17:28 Labs: Abnormal Lab Results - Last 24 Hours (Table) 11/27/19 11/27/19 11/27/19 Range/Units 17:28 17:28 17:28 WBC 16.8 H (3.8-10.6) k/uL Neutrophils # 13.6 H (1.3-7.7) k/uL PT 13.7 H (9.0-12.0) sec INR 1.4 H (<1.2) Sodium (137-145) mmol/L Chloride (98-107) mmol/L BUN (9-20) mg/dL Creatinine (0.66-1.25) mg/dL Glucose (74-99) mg/dL Magnesium (1.6-2.3) mg/dL ALT (4-49) U/L Urine Protein Trace H (Negative) Amorphous Sediment Few H (None) /hpf Hyaline Casts 11 H (0-2) /lpf Urine Mucus Rare H (None) /hpf 11/27/19 Range/Units 17:28 WBC (3.8-10.6) k/uL Neutrophils # (1.3-7.7) k/uL PT (9.0-12.0) sec INR (<1.2) Sodium 159 H (137-145) mmol/L Chloride 126 H (98-107) mmol/L BUN 84 H (9-20) mg/dL Creatinine 1.65 H (0.66-1.25) mg/dL Glucose 118 H (74-99) mg/dL Magnesium 3.1 H (1.6-2.3) mg/dL ALT 52 H (4-49) U/L Urine Protein (Negative) Amorphous Sediment (None) /hpf Hyaline Casts (0-2) /lpf Urine Mucus (None) /hpf Thrombosis Risk Factor Assmnt - Choose All That Apply Each Factor Represents 1 point: Obesity (BMI >25) Each Risk Factor Represents 2 Points: Age 61-74 years Thrombosis Risk Factor Assessment Total Risk Factor Score: 3 Thrombosis Risk Factor Assessment Level: Moderate Risk Assessment and Plan Plan: -Severe dehydration: Secondary to poor by mouth intake -Dysphagia secondary to Parkinson's -Hyponatremia hypovolemic hyponatremia -Acute renal failure secondary to dehydration -Poor functionality secondary to Parkinson's -Advanced Parkinson's Patient is definitely appropriate for hospice PEG tube is not appropriate medically as well as in this situation and I agree with the family the patient the should be hospice and hospice will be consulted.
[2019-11-28] MEDS ORDERED: ATROPINE OPHTH SOLN 1% 5ML BTL BOTH EYES PRN (15:17)
[2019-11-28] MEDS ORDERED: ATROPINE OPHTH SOLN 1% 5ML BTL SUBLINGUAL PRN (15:19)
[2019-11-28] MEDS ORDERED: SCOPOLAMINE 1.5MG/72HR PATCH TRANSDERM SCH (15:30)
[2019-11-28] MEDS ORDERED: ATROPINE OPHTH SOLN 1% 5ML BTL BOTH EYES SCH (18:00)
== END 2019-11-28 16:10 | disposition hospice, home (50) ==
LOC: EC 16:07 → 4SSUR 18:23
PROVIDERS: ADMIT Internal Medicine; ATTEND Internal Medicine
DX: E86.0 Dehydration (principal); R13.10 Dysphagia, unspecified; E86.1 Hypovolemia; E87.1 Hypo-osmolality and hyponatremia; G20 Parkinson's disease; J69.0 Pneumonitis due to inhalation of food and vomit; J98.11 Atelectasis; N17.9 Acute kidney failure, unspecified; Z74.01 Bed confinement status; Z79.899 Other long term (current) drug therapy
CPT/HCPCS: 96360; 99285; 36415; 93005; 80053; 83605; 83735; 85025; 85610; 85730; 81001; 71045; G0378 ×2

== ENCOUNTER 2019-11-28 16:34 | Inpatient (IN) | payer MEDICAID, MEDICARE ==
[2019-11-28] MEDS ORDERED: ACETAMINOPHEN SUPPOSITORY 650 MG SUPP RECTAL PRN (16:41)
[2019-11-28] MEDS ORDERED: LORazepam 2 MG/ML INJ IV PRN (16:41)
[2019-11-28] MEDS ORDERED: ATROPINE OPHTH SOLN 1% 5ML BTL SUBLINGUAL PRN (16:41)
[2019-11-28] MEDS ORDERED: bisacodyL 10 MG SUPP RECTAL PRN (16:43)
[2019-11-28] MEDS ORDERED: SCOPOLAMINE 1.5MG/72HR PATCH TRANSDERM SCH (16:45)
[2019-11-28] MEDS: MORPHINE SULFATE 2 MG/ML SYRINGE IV PRN ×4 (16:55→21:41)
[2019-11-28 22:13] VITALS: BP 108/70; PULSE 86; RESP 26
[2019-11-29] MEDS: MORPHINE SULFATE 2 MG/ML SYRINGE IV PRN ×3 (06:48→09:50)
[2019-11-29 10:02] VITALS: TEMP 99.9
[2019-11-29] MEDS ORDERED: MORPHINE SULFATE (100 MG/2 ML) 100 MG in SODIUM CHLORIDE 0.9% 100 ML IV SCH (11:30)
--- NOTE | 2019-11-29 11:55 | P.HPIM ---
History of Present Illness H&P Date: 11/29/19 74-year-old male, history of Parkinson's, currently at [facility], presenting for multiple reasons including decreased ability to swallow, weight loss over the past week. He is also currently being treated for aspiration pneumonia and on Levaquin. Patient is unable to answer questions, he is currently at baseline according to his . He does respond to painful stimuli or taking his blood pressure over not able to answer questions. He is currently bedridden due to chronic leg weakness. Patient's states that she feels like he needs a feeding tube or be placed on hospice. According to Eric, he has had no fevers, no vomiting, no diarrhea. Patient can become aggressive at times. T here have been no recent falls. There are no further complaints at this time. Patient appears to be obtunded family at the bedside with I was able to get the history from the family members which his daughter in the Patient has extensive history diagnosed 4 years ago with Parkinson's since then patient function and he has been getting progressively worse patient started getting agitated because of which patient was started on Risperdal after Risperdal his functional status and Parkinson's worsened significantly leading to extreme poor functionality, dysphagia. Patient is presently severely dehydrated cannot eat anything functionality is extremely poor unable to do physical therapy at the rehabilitation. Family is ready for hospice. Because of the extreme poor functionality hospice is appropriate patient's prognosis is extremely poor. Patient is severely dehydrated barely responsive in with painful stimuli. Review of Systems Review of systems unable to obtain due to clinical condition, nonverbal Past Medical History Past Medical History: Unable to Obtain Additional Past Medical History / Comment(s): parkinsons History of Any Multi-Drug Resistant Organisms: None Reported Past Surgical History: Unable to Obtain Past Anesthesia/Blood Transfusion Reactions: Unable to Obtain Past Psychological History: No Psychological Hx Reported Additional Psychological History / Comment(s): states he takes valium for anxiety as needed Smoking Status: Never smoker Past Alcohol Use History: Daily Past Drug Use History: None Reported Medications and Allergies Home Medications Medication Instructions Recorded Confirmed Type Carbidopa-Levodopa 25-100 mg 1 tab PO DAILY@0700 11/11/19 11/28/19 History [Sinemet 25-100 mg] Ibuprofen [Motrin Ib] 400 mg PO Q6H PRN 11/11/19 11/28/19 History Tamsulosin [Flomax] 0.8 mg PO HS@2100 11/11/19 11/28/19 History diazePAM [Valium] 10 mg PO DAILY PRN 11/11/19 11/28/19 History Carbidopa-Levodopa 25-100 mg 0.5 tab PO TID@1100,1700,2000 11/27/19 11/28/19 History [Sinemet 25-100] Health Shake 1 can PO TID@0700,1200,1700 11/27/19 11/28/19 History Allergies Allergy/AdvReac Type Severity Reaction Status Date / Time Penicillins Allergy Unknown Verified 11/28/19 17:39 Childhood Physical Exam Vitals: Vital Signs Temp Pulse Resp BP Pulse Ox 11/29/19 10:01 99.9 F H 11/29/19 08:30 102.2 F H 11/28/19 23:55 86 26 H 11/28/19 19:35 100.8 F H 86 26 H 108/70 89 L Intake and Output 11/28/19 11/29/19 11/29/19 22:59 06:59 14:59 Other: Weight 83.915 kg GENERAL: Thin built up trended barely responsive mucous membranes looks really sick HEENT: No scleral icterus. No conjunctival pallor. Normocephalic, atraumatic. No pharyngeal erythema. No thyromegaly. CARDIOVASCULAR: S1 and S2 present. No murmurs, rubs, or gallops. PULMONARY: Unable to assess ABDOMEN: Soft, nontender, nondistended, normoactive bowel sounds. No palpable organomegaly. MUSCULOSKELETAL: No joint swelling or deformity. EXTREMITIES: No cyanosis, clubbing, or pedal edema. NEUROLOGICAL: Able to assess SKIN: No rashes. Assessment and Plan Assessment: Assessment and Plan Plan: -Severe dehydration: Secondary to poor by mouth intake -Dysphagia secondary to Parkinson's -Hyponatremia hypovolemic hyponatremia -Acute renal failure secondary to dehydration -Poor functionality secondary to Parkinson's -Advanced Parkinson's Patient is definitely appropriate for hospice PEG tube is not appropriate medically as well as in this situation, patient is admitted to hospice, currently receiving palliative measures, his morphine drip.
== END 2019-11-29 18:11 | disposition expired | DRG 951 ==
LOC: 4SSUR 16:34
PROVIDERS: ADMIT Internal Medicine; ATTEND Internal Medicine
DX: Z51.5 Encounter for palliative care (principal); J69.0 Pneumonitis due to inhalation of food and vomit; E87.1 Hypo-osmolality and hyponatremia; N17.9 Acute kidney failure, unspecified; G20 Parkinson's disease; Z66 Do not resuscitate; E86.0 Dehydration; E86.1 Hypovolemia; R13.10 Dysphagia, unspecified; R63.4 Abnormal weight loss; Z74.01 Bed confinement status; Z79.899 Other long term (current) drug therapy; Z88.0 Allergy status to penicillin